=== PATIENT | female | born 1970 | race Caucasian/White ===

== ENCOUNTER 2017-04-21 11:52 | Observation (INO) | payer BC, OTHER ==
[~2017-04-21] VITALS: Ht 167.6 cm; Wt 79.8 kg
[~2017-04-21 11:52] MED LIST: CITA20TA9 PO; ERTA1VIA IV; OLME1TAB38 PO; TAMO10TA PO
[2017-04-21] MEDS ORDERED: SODIUM CHLORIDE 0.9% 1,000 ML IV ONE (12:26)
[2017-04-21] MEDS ORDERED: AMOX-291 PO (12:29)
[2017-04-21] MEDS ORDERED: ONDANSETRON 2MG/ML, 2ML IVPush ONE (12:30)
[2017-04-21] MEDS ORDERED: SODIUM CHLORIDE 0.9% 1,000ML IVBOLUS ONE (12:30)
[2017-04-21] MEDS ORDERED: CALC-72 PO (12:31)
[2017-04-21] MEDS ORDERED: PHEN37.53 PO (12:32)
[2017-04-21] MEDS ORDERED: MORPHINE SULFATE 4 MG/ML, 1ML ONE ×2 (12:53→14:28)
[2017-04-21] MEDS ORDERED: ONDANSETRON 2MG/ML, 2ML ONE ×2 (12:53→17:31)
[2017-04-21] MEDS: MORPHINE SULFATE 4 MG/ML, 1ML IVPush PRN ×2 (12:56→14:30)
[2017-04-21 13:05] LABS: ASPARTATE AMINO TRANSFERASE 115 U/L (15-37); BLOOD UREA NITROGEN 10 mg/dL (7-18)
[2017-04-21] MEDS ORDERED: OMNIPAQUE 350 MG/ML, 100ML BOTTLE ONE (14:03)
[2017-04-21] MEDS ORDERED: CEFOTETAN PMX 1GM/50ML 50 ML ONE (14:45)
[2017-04-21] MEDS ORDERED: POTASSIUM CHLORIDE 20 MEQ in SODIUM CHLORIDE 0.9% 1,000 ML IV ONE (14:55)
[2017-04-21] MEDS ORDERED: ONDANSETRON 2MG/ML, 2ML IVPush PRN ×2 (15:00→18:30)
[2017-04-21] MEDS ORDERED: MORPHINE SULFATE 4 MG/ML, 1ML IVPush PRN (15:00)
[2017-04-21] MEDS ORDERED: CEFOTETAN PMX 1GM/50ML 50 ML IV ONE (15:00)
[2017-04-21] MEDS ORDERED: BUPIVACAINE/PF 0.5% ONE (15:40)
[2017-04-21 15:45] VITALS: BP 155/85
[2017-04-21 15:59] LABS: HCG UR OBC PASS
[2017-04-21] MEDS ORDERED: FENTANYL PF 250 MCG/5ML ONE ×2 (16:21→17:00)
[2017-04-21] MEDS ORDERED: MIDAZOLAM 1 MG/ML, 2ML ONE ×2 (16:22→17:00)
[2017-04-21] MEDS ORDERED: CEFOTETAN 2 GM ONE (17:31)
[2017-04-21] MEDS ORDERED: NEOSTIGMINE 1 MG/ML, 10ML ONE (17:31)
[2017-04-21] MEDS ORDERED: ROCURONIUM 10 MG/ML ONE (17:31)
[2017-04-21] MEDS ORDERED: GLYCOPYRROLATE 0.2MG/1ML ONE (17:31)
[2017-04-21] MEDS ORDERED: PROPOFOL 10 MG/ML, 20ML ONE (17:31)
[2017-04-21] MEDS ORDERED: SUCCINYLCHOLINE 20 MG/ML, 10ML ONE (17:31)
[2017-04-21] MEDS ORDERED: DEXAMETHASONE 4 MG/ML, 1ML ONE (17:31)
[2017-04-21] MEDS ORDERED: KETOROLAC 30 MG/1 ML ONE (17:31)
[2017-04-21] MEDS ORDERED: BUPIVACAINE/PF 0.5% INFIL ONE (17:57)
[2017-04-21] MEDS ORDERED: LABETALOL 5MG/ML, 20ML IV PRN (18:30)
[2017-04-21] MEDS ORDERED: hydrALAzine 20 MG/ML, 1ML IV PRN (18:30)
[2017-04-21] MEDS ORDERED: MIDAZOLAM 1 MG/ML, 2ML IV PRN (18:30)
[2017-04-21] MEDS ORDERED: HYDROmorphone 1 MG/ML, 1ML IV PRN (18:30)
[2017-04-21] MEDS ORDERED: PROMETHAZINE 25 MG/ML, 1ML IV PRN (18:30)
[2017-04-21] MEDS ORDERED: HYDROcodone/APAP 7.5-325MG/15ML UDC PO PRN (18:30)
[2017-04-21] MEDS ORDERED: ALBUTEROL/IPRATROPIUM 2.5MG/0.5MG, 3 ML NPPB PRN (18:30)
[2017-04-21] MEDS ORDERED: MEPERIDINE/PF 25MG/0.5ML IVPush PRN (18:30)
[2017-04-21] MEDS ORDERED: MEPERIDINE/PF 25MG/0.5ML ONE (18:59)
[2017-04-21] MEDS ORDERED: HYDROcodone/APAP 7.5-325MG/15ML UDC ONE (18:59)
[2017-04-21] MEDS: FENTANYL PF 100 MCG/2ML IV PRN ×2 (19:18→19:25)
[2017-04-21] MEDS ORDERED: FENTANYL PF 100 MCG/2ML ONE (19:19)
[2017-04-21 20:14] VITALS: BP 135/87
[2017-04-21] MEDS ORDERED: OXYC-302 PO (20:30)
[2017-04-21] MEDS ORDERED: AMOXICILLIN MC SCH (21:00)
[2017-04-22] MEDS ORDERED: PHENTERMINE 37.5 MG HOMEMEDPO SCH (09:00)
[2017-04-22] MEDS ORDERED: CITALOPRAM 20 MG TABLET PO SCH (09:00)
[2017-04-22] MEDS ORDERED: VALSARTAN 320 MG TABLET PO SCH (09:00)
[2017-04-22] MEDS ORDERED: HYDROCHLOROTHIAZIDE 25 MG TABLET PO SCH (09:00)
[2017-04-22] MEDS ORDERED: AMLODIPINE 5 MG TABLET PO SCH (09:00)
[2017-04-22] MEDS ORDERED: CALCIUM/VITAMIN D3 250-125 TABLET PO SCH (09:00)
== END 2017-04-21 21:30 | disposition home or self-care (01) ==
LOC: ED 12:54 → 4NOR 14:55 → INTOOBSV 14:55 → 4NOR 15:42
PROVIDERS: ADMIT Surgery; ATTEND Surgery
DX: K35.80 Unspecified acute appendicitis (principal); R63.4 Abnormal weight loss; I10 Essential (primary) hypertension; E78.5 Hyperlipidemia, unspecified; Z85.3 Personal history of malignant neoplasm of breast; Z80.3 Family history of malignant neoplasm of breast
CPT/HCPCS: 36415; 44970; 74000; 74177; 80053; 81001; 81025; 83690; 85025; 88304; 96365; 96375; 96376; 99285; G0378; J0330; J1100; J1885; J2175; J2250; J2405; J2704; J2710; J3010; J3490; J7030; Q9967; S0074